=== PATIENT | female | born 2005 | race Caucasian/White ===

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

== ENCOUNTER 2024-08-01 11:06 | Emergency (ER) | payer OTHER, SELFPAY ==
[2024-08-01 11:07] VITALS: BP 128/85; PULSE 104; RESP 16; TEMP 36.5; O2SAT 97; BMI 20.6
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
[2024-08-01] MEDS: Ondansetron 4 MG/2 ML Vial IV (11:44)
[2024-08-01] MEDS: 0.9% Normal Saline (1000mL) 1,000 ML 150 ML IV (11:45)
[2024-08-01 12:19] LABS: Internal QC Validated? YES +Cl - CLEAR BKGD; Pregnancy, Serum, hCG Quali. NEGATIVE Negative
[2024-08-01 12:23] LABS: Absolute Lymphocyte Count 1.35 X10^3/uL (0.83-4.51); Absolute Neutrophil Count 6.9 X10^3/uL (2.0-7.7); Basophil# 0.05 X10^3/uL; Basophil% 0.5 % (0-1); Eosinophil# 0.06 X10^3/uL; Eosinophils% 0.7 % (0-5); Hematocrit 45.9 % (37-47); Lymphocyte # 1.35 X10^3/ul (0.83-4.51); Lymphocyte % 14.6 % (19-41); Mean Corp Hgb Conc 32.7 g/dL (32-36); Mean Corpuscular Hgb 27.6 pg (27.0-32.0); Mean Corpuscular Volume 84.5 fL (81-99); Monocyte# 0.83 X10^3/uL; NRBC Flagged by Analyzer 0 % (0-5); Neutrophil % 74.9 % (47-70); Platelet Count 382 K/mm3 (150-450); RBC Distribution Width CV 13.1 % (11.6-14.6); RBC Distribution Width SD 39.8 fl (35.1-43.9); Red Blood Count 5.43 M/mm3 (4.2-5.4); White Blood Count 9.2 K/mm3 (4.4-11.0)
[2024-08-01 12:37] LABS: ALB/GLOB Ratio 1.2 RATIO (0.9-2.4); AST(SGOT) 18 U/L (15-37); Alanine Aminotransfer ALT/SGPT 15 U/L (13-56); Albumin, Serum 4.8 g/dL (3.2-5.0); Alkaline Phosphatase 90 U/L (45-117); Anion Gap 11 (5-15); BUN 11 mg/dL (7-18); BUN/Creat Ratio 15.3 RATIO (10-20); Calcium,Total 10.2 mg/dL (8.5-10.1); Chloride 103 mmol/L (98-107); Creatinine, Serum 0.72 mg/dL (0.55-1.02); EST Glomerular Filtration Rate 109 mL/min (>60); Est Glom Filt Rate - Afr Amer 132 mL/min (>60); Estimated Creatinine Clearance 120.01 ml/min; Globulin 4.1 g/dL (2.2-4.2); Glucose 79 mg/dL (74-106); Potassium 3.7 mmol/L (3.5-5.1); Protein, Total 8.9 g/dL (6.4-8.2); Sodium Level 138 mmol/L (136-145)
[2024-08-01 13:06] VITALS: BP 124/77; PULSE 81; RESP 19
[2024-08-01 15:00] VITALS: BP 113/71; PULSE 78; RESP 19
[2024-08-01 15:02] LABS: Mucous, Urine 0 SEEN /hpf (<or=2+); Red Blood Cells-Urine 0 SEEN /hpf (0-5)
[2024-08-01 15:13] LABS: Color, Urine Yellow (Yellow); Glucose, Dipstick 1000 mg/dl (Normal); Leukocyte Esterase-Dipstick 500 /ul (Negative); Nitrite-Dipstick Negative (Negative); Occult Blood-Urine 10 /ul (Negative); Protein-Dipstick 30 mg/dl (Negative); Specific Gravity, Urine 1.015 (1.002-1.030); Urine Bilirubin Dipstick Negative (Negative); Urine Clarity Clear (Clear); Urine Urobilinogen Normal (Normal)
[2024-08-01 15:26] LABS: Ketone-Dipstick 150 mg/dl (Negative)
[2024-08-01 16:00] LABS: Bacteria 1+ /hpf (None Seen); Squamous Epithelial Cells - UA 0-5 SEEN /hpf (5-10); White Blood Cells >100 SEEN /hpf (0-5)
[2024-08-01] MEDS: Ceftriaxone 1 GM/50 ML BAG IV (16:27)
[2024-08-01 16:29] VITALS: BP 99/61; PULSE 78; RESP 18; TEMP 36.8; O2SAT 98
== END 2024-08-01 16:36 | disposition home or self-care (01) ==
PROVIDERS: Emergency Provider Emergency Medicine; Visit Provider Emergency Medicine
DX: S06.0X0A Concussion without loss of consciousness, initial encounter (principal); N39.0 Urinary tract infection, site not specified; S20.211A Contusion of right front wall of thorax, initial encounter; S09.90XA Unspecified injury of head, initial encounter; V86.05XA Driver of 3- or 4- wheeled all-terrain vehicle (ATV) injured in traffic accident, initial encounter
CPT/HCPCS: 70450; 71260; 72125; 74177; 80053; 81001; 84703; 85025; 87077; 87086; 87088; 87186; 96361; 96374; 96376; 99283; J7030; Q9967; A4216; J2405

== ENCOUNTER 2025-01-06 20:43 | Emergency (ER) | payer OTHER, SELFPAY ==
[2025-01-06 20:43] VITALS: BP 133/85; PULSE 91; RESP 18; TEMP 36.6; O2SAT 100; BMI 20.5
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
--- NOTE | 2025-01-06 22:07 | EDS_ITS ---
HPI History of Present Illness HPI Narrative: Healthy 19-year-old female works at [employer]. Yesterday she was lifting a car parked there weighed around 70 pounds and as she lifted and bend her knee she hit a metal table with the knee complaining of pain on her right anterior and medial aspect of her knee. No prior knee history or surgery. She is able to walk. Denies any other injuries. Chief Complaint: Lower Extremity Injury Informant: patient Occured/Mechanism Mechanism/Context: Yes injury and Yes blunt trauma Onset/Context/Timing Onset: Yesterday Timing: Continuous Quality of Pain: Dull and Aching Current Severity: Mild Maximum Severity: Mild Associated Symptoms Associated Symptoms: Negative for Parasthesia, Weakness or Loss of Funtion Narrative Narrative: Healthy 19-year-old female injured her knee yesterday at work as she was lifting a part she hit her right knee versus a metal table. Prior similar symptoms: No Recent Illness/Hospitalization: No PFSH PFSH Medical History Right knee pain Home Medications ?Medication ?Instructions ?Recorded ?Last Taken ?Type cephalexin 500 mg capsule 500 mg PO Q6 #28 CAPSULES Unknown Rx ondansetron 4 mg disintegrating 4 mg PO Q8H PRN PRN Na usea #10 tabs 08/01/24 Unknown Rx tablet Allergy/AdvReac Type Severity Reaction Status Date / Time No Known Allergies Allergy Verified 01/06/25 20:46 Social History household members: family and children housing: house Smoking Status: Never smoker alcohol intake: never substance use type: does not use ROS ROS ED ROS Narrative Denies recent illness. Constitutional Constitutional ED: Denies chills or fever(s) Eyes Eyes: Denies blurry vision ENT ENT ED: Denies ear pain Cardiovascular Cardiovascular: Denies chest pain Respiratory/Chest Respiratory/Chest: Denies dyspnea Gastrointestinal Gastrointestinal: Denies abdominal pain Genitourinary Genitourinary ED: Denies dysuria or hematuria Musculoskeletal Musculoskeletal: Denies arthralgias Integumentary Denies abscess Neurologic Neurologic: Denies headache(s) Psychiatric Psychiatric: Denies anxiety or depression Endocrine Endocrinology: Denies polydipsia Hematologic/Lymphatic Hematologic/Lymphatic: Denies easy bleeding, easy bruising or lymphadenopathy Allergic/Immunologic Allergic/Immunologic ED: Denies mouth swelling, tongue swelling or urticaria EXAM Physical Exam Narrative Exam Narrative: 19-year-old female no acute distress. Vital signs stable afebrile. Initially in the chair and then easily can stand and transfer to the bed from my exam. H EENT exam normal. Pupils round reactive light. Mytrex membranes. No trauma. Lungs clear. Heart regular rhythm. Abdomen soft nontender. Chest wall nontender. Back nontender. Moving all 4 extremities. Neurovascularly intact. Normal range of motion. 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 Dorsi plantarflexion intact. Specifically right knee has some mild tenderness anteriorly and medially. There is no effusion or significant swelling. The right hip ankle and foot are nontender with normal range of motion. She has normal flexion and extension of the right knee. ACL and PCL are intact. Good endpoints. MCL and LCL are intact. Again no swelling or effusion. No redness. Quadriceps patella and infrapatellar tendon are intact. No bony deformity. No crepitance. Otherwise exam unremarkable. Const Vital Signs: 01/06/25 20:43 Temperature 97.9 F Temperature Source Oral Pulse Rate 91 Respiratory Rate 18 Blood Pressure 133/85 H Blood Pressure Mean 101 Pulse Ox 100 Oxygen Delivery Method Room Air Positive well nourished and well developed; Negative for obese, cachectic, contractures or unkempt General Appearance ED: well developed and NAD; Negative for unkempt, cachectic or contractures Nutritional Appearance: Negative for cachectic or obese HEENT Reports moist mucous membranes normocephalic and atraumatic; Negative for trauma or tenderness Eyes PERRL Neck full ROM and supple Chest Wall inspection of chest normal and palpation of chest normal Resp normal respiratory effort, no retractions and clear to auscultation bilaterally Auscultation: Negative for rales, rhonchi, wheezes or diminished lung sounds Cardio regular rate, regular rhythm, S1 normal heart sound, S2 normal heart sound and no murmurs GI non-tender, non-distended and no masses Back/Spine no CVA tenderness General Back: Negative for CVA tenderness Cervical Spine: Negative for cervical spine tenderness Thoracic Spine / Upper Back: Negative for thoracic spinal tenderness Lumbar Spine / Lower Back: Negative for lumbar spinal tenderness Extremity normal to inspection and full ROM Extremity Narrative: Mild tenderness right knee. However no significant swelling. No effusion. Normal range of motion with full flexion extension. ACL and PCL are intact. As are the MCL and LCL. Quadriceps patella and infrapatellar tendon are intact. She can lift the leg off the bed without any difficulty. General Extremety ED: Negative for weight-bearing difficulty General Extremity: Negative for weight-bearing difficulty Neuro oriented x3, CN's II-XII intact bilaterally, moves all extremities and no sensory deficits noted Sensorium / Orientation: alert, oriented to person, oriented to place and oriented to time; Negative for orientation impaired Motor Exam: strength 5/5 throughout Psych mental status grossly normal Appearance: Negative for unkempt Speech: No other Mood & Affect: Negative for anxious Skin no wounds Lesions: no lesions Rashes: no rashes Trauma: Negative for abrasion, laceration or puncture Image ED - Lower Extremity Diagram: 2 1. Mild tenderness anterior medial right knee. No effusion. No swelling. Normal range of motion. Ligaments and tendons intact. MDM MDM MDM Narrative Medical decision making narrative: 19-year-old female hit her right knee at work yesterday complaining of pain. Benign exam. Did not want a thing for pain. X-ray being obtained. Repeat exam unchanged at 10:17 PM. We went over x-ray results. History & Record Review Discussion w/independent historian: Patient Radiography Diagnostic Testing: Right knee x-ray, 4 views, interpreted by myself shows no acute abnormality. No fracture. No dislocation. No significant effusion. No bony abnormality. Discharge Plan Triage Chief Complaint: Lower Extremity Injury ED Provider: Bk Simpson Dx/Rx/DC Orders Clinical Impression: Contusion of knee, right, Encounter related to worker's compensation claim Instructions: ED Contusion, Lower Extremity Prescriptions: No Action ondansetron 4 mg tablet,disintegrating 4 mg PO Q8H PRN PRN (Reason: Nausea) Qty: 10 0RF cephalexin 500 mg capsule 500 mg PO Q6 Qty: 28 0RF Primary Care Provider: Care Physician,No Primary Referrals: [facility],Care [Group of Physicians] - 1 Week if not improving Care Physician,No Primary [Primary Care Provider] - Activity Restrictions/Additional Instructions: Motrin for pain and inflammation. Tylenol for pain. Ice your knee for pain and swelling. This should progressively start feeling better if in a week is not improving follow-up with corporate care. Print Language: Lao Disposition Disposition: Home, Self Care
== END 2025-01-06 22:24 | disposition home or self-care (01) ==
PROVIDERS: Emergency Provider Emergency Medicine; Visit Provider Emergency Medicine
DX: S80.01XA Contusion of right knee, initial encounter (principal); W22.09XA Striking against other stationary object, initial encounter; Y99.0 Civilian activity done for income or pay
CPT/HCPCS: 73564; 99282